=== PATIENT | female | born 2000 | race Caucasian/White ===

== ENCOUNTER 2022-09-14 13:54 | Inpatient (IN) ==
--- NOTE | 2022-09-14 14:35 | Emergency Department Note ---
Impression & Plan Depression with suicidal ideation ED Provider Note NAME: TRACE LANDIN AGE: 21 SEX: F : 2000 ARRIVES VIA: Walk-In INFORMANT: Patient, ED PROVIDER(S): Alejandro Phipps MD CHIEF COMPLAINT: Depression, "I am trying not to cry." MEDICAL DECISION MAKING: Patient presented due to concern for mental wellness issues with associated depression suicidal ideation but without plan. The patient would like to seek inpatient treatment. Blood work was obtained and was being medically cleared seen and evaluated by the psych rehabilitation caseworker. Referrals were made. Patient was signed out to Dr. Gale pending reevaluation and disposition. Prior /Outside records reviewed: None Differential diagnosis: Mood disorder, infection, hypoglycemia, electrolyte abnormalities, cardiac sources, intracerebral event, toxicologic, trauma, neurologic, as well as other pathologies. HPI: Patient presents due to concern for depression and feeling as though she is going to cry. The patient has had thoughts of self-harm including overdosing on pills. The patient states that she is gotten progressively worse over the last several months and is unsure as to any sort of inciting event. The patient last tried to cut her wrist with box worker 6 months ago but did not do with intent to kill herself. The patient states that she has had thoughts of killing yourself recently. Patient denies any HI or AVH. 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 The patient currently lives with a boyfriend and states that her relationship is fine and feels safe at home. The patient does have access to the boyfriend's gun which is not in a locked safe. Patient denies any alcohol tobacco or drug use. The patient was started on Lexapro recently but does not feel as though it is improving her symptoms. Patient LMP was 1 month prior. This is normal for her. The patient states that she does not sleep at night but ends up sleeping during the day. The patient has varying appetite sometimes she is very hungry and other times she has no appetite. The patient does vape tobacco but denies any alcohol or drug use. The patient does receive her medications from primary care doctor and has tried to seek out care with a therapist or psychiatrist but has been unable to obtain an appointment. PAST MEDICAL HISTORY: See Below PAST SURGICAL HISTORY: See Below SOCIAL HISTORY: See Below HOME MEDICATIONS: See Below ALLERGIES: See Below VITALS: See Below PHYSICAL EXAMINATION: GENERAL: Depressed mood and tearful EYE EXAM: Normal conjunctiva. PERRL, no anisocoria and EOM's grossly intact w/o pain. NECK: Supple, no nuchal rigidity, no adenopathy, non-tender. No signs of meningismus. FROM of the neck with good chin to chest and neck extension. No stridor. LUNGS: Clear to auscultation. Normal chest wall mechanics. HEART: NSR, no MRG. ABDOMEN: Abdomen soft, non-tender, normo-active bowel sounds, no masses, no rebound or guarding. BACK: No CVA TTP. SKIN: No rashes and no bruising. UPPER EXTREMITIES: Upper extremities are grossly normal. LOWER EXTREMITIES: Grossly normal, no edema. NEURO EXAM: A&O x3, cranial nerves II-XII grossly intact, normal speech, moves all 4 extremities. Psych: Tearful, depressed mood, positive SI, negative HI or AVH Past Med/Surg History Medical History MDD (major depressive disorder) Surgical History No pertinent past surgical history Social History Smoking Status: Current every day smoker Hx Alcohol Use: No Hx Substance Use: No Preferred Language: [place] Citizen Feels Safe at Home: Yes Gender Identity: Female Results & Data (ED) Vital Signs Vital Signs - 24 hr 09/14/22 13:57 Temperature 36.4 C L Temperature Source Temporal Artery Scan Pulse Rate 90 Pulse Rhythm Regular Respiratory Rate 16 Respiratory Effort / Characteristics Non-Labored Spontaneous Respiratory Depth Normal Blood Pressure 151/92 H Blood Pressure Mean 111 Pulse Oximetry 99 Oxygen Delivery Method Room Air Sepsis Recent Fever Within 48 Hours No Sepsis New/Unexplained Change in Mental Status No Sepsis Action Taken by Nursing No Action Required Laboratory Data 09/14/22 14:21 09/14/22 14:21 Lab Results 09/14/22 Range/Units 14:15 SARS-CoV-2, RNA, NAAT NEGATIVE (NEGATIVE) Discharge Plan Visit Data Chief Complaint: Mental Health Evaluation Stated Complaint: MENTAL HEALTH EVAL ED Provider: Alejandro Phipps Discharge Problem: Depression with suicidal ideation Patient Disposition: Still a Patient Forms Stand Alone Forms: [facility], Suicide Prevention Resources Referrals Referrals: PCP,NO [Physician] -
[2022-09-14 15:25] LABS: Basophils # (auto) 0.04 K/uL (0-0.2); Basophils % (auto) 0.6 %; Eosinophils # (auto) 0.15 K/uL (0-0.50); Eosinophils % (auto) 2.3 %; Hematocrit (blood only) 40.7 % (37.0-47.0); Immature Granulocytes # (auto) 0.01 K/uL (0.01-0.20); Immature Granulocytes % (auto) 0.2 %; Lymphocytes # (auto) 2.73 K/uL (1.2-3.4); Mean Corpuscular Hemoglobin 26.5 pg (25.0-34.0); Mean Corpuscular Hgb Conc 31.9 g/dL (32.0-36.0); Mean Corpuscular Volume 83.1 fL (80.0-100.0); Mean Platelet Volume 8.5 fL (9.4-12.4); Monocytes # (auto) 0.47 K/uL (0.11-0.59); Monocytes % (auto) 7.2 %; Neutrophils % (auto) 47.7 %; Platelet Count 367 K/uL (130-400); RDW Coefficient of Variation 14.4 % (11.5-14.5); RDW Standard Deviation 43.7 fL (36.4-46.3)
[2022-09-14 15:49] LABS: Appearance Urine Clear (Clear); Bilirubin Urine Negative (Negative); Blood Urine Negative (Negative); Color Urine Yellow; Glucose Urine UA Negative (Negative); Ketones Urine Negative (Negative); Leukocyte Esterase Urine Negative (Negative); Nitrite Urine Negative (Negative); Protein Urine Negative (Negative); Specific Gravity Urine 1.012 (1.000-1.030); Urobilinogen Urine Negative (Negative); pH Urine 7.5 (4.5-7.5)
[2022-09-14 15:49] LABS: Acetaminophen < 3 ug/ml (10-30); Salicylate < 3.0 mg/dl (3.0-30)
[2022-09-14 16:17] LABS: Pregnancy Test, Urine Negative (Negative)
[2022-09-14 16:18] LABS: Albumin Globulin Ratio 1.4 (0.9-2); BUN Creatinine Ratio 18.2 (10-20); Bilirubin,Total 0.4 mg/dl (0.2-1.0); Calcium 10.1 mg/dl (8.5-10.1); Creatinine Clr Calc Pharmacy 137.2 ml/min; Est GFR (African American) 147.4 ml/min; Est GFR (Non-African American) 127.2 ml/min; Globulin 3.5 gm/dl (2.5-4.0); Potassium 3.9 mmol/L (3.5-5.1); Total Protein 8.5 gm/dl (6.0-8.3)
[2022-09-14 17:06] LABS: Amphetamines+Metham, Urine Neg (Neg); Barbiturates, Urine Neg (Neg); Benzodiazepine, Urine Neg (Neg); Cocaine, Urine Neg (Neg); MDMA (Ecstacy), Urine Neg (Neg); Methadone, Urine Neg (Neg); Opiate, Urine Neg (Neg); Phencyclidine, Urine Neg (Neg)
--- NOTE | 2022-09-14 17:44 | Emergency Department Note ---
ED Visit Note 1500: Signout from Dr. Phipps. 21-year-old female with suicidal ideation. Awaiting labs. 1540: Patient medically cleared. Awaiting psychiatric evaluation and possible placement. Patient placed in observation at this time. 191: Patient excepted to 3 S. The patient was originally placed in observation on September 14, 2022 to establish medical clearance and determine the patients ultimate disposition. The patient was also evaluated by the ED psychiatric immigration case manager. It was eventually determined that the patient did require inpatient psychiatric care. Patient admitted to 3 S. Total time spent on observation discharge for the final evaluation of the patient, discussion of the Observation stay, reviewing instructions for continuing care, and required follow up plan: 3 hours and 35 minutes .
[2022-09-14] MEDS ORDERED: SODIUM CHLORIDE 0.65% NA SOLN 45 ML (OCEAN) PRN (19:03)
[2022-09-14] MEDS ORDERED: MAGNESIUM HYDROXIDE SUSP 30 ML UDC PO PRN (19:03)
[2022-09-14] MEDS ORDERED: BISMUTH SUBSALICYLATE LIQD 236 ML PO PRN (19:03)
[2022-09-14] MEDS ORDERED: hydrOXYzine HCl 25 MG TAB PO PRN ×2 (19:03)
[2022-09-14] MEDS ORDERED: ALUMINUM/MAGNESIUM SUSP 30 ML UDC PO PRN (19:03)
[2022-09-14] MEDS ORDERED: ACETAMINOPHEN 325 MG TAB PO PRN (19:03)
--- NOTE | 2022-09-15 08:16 | History & Physical ---
Date of Service September 15, 2022 Impression / Recommendations Impression Trace is a 21 year old with a history of depression and anxiety who was admitted for worsening mood symptoms with SI with plans of overdosing. Diagnostically consistent with major depressive disorder with anxious distress and generalized anxiety disorder with panic attacks. She is deemed in need of psychiatric hospitalization for diagnostic clarification, safety and stabilization, medication management and development of further coping skills. Discussed medication treatment options in detail. Discussed risks, benefits and alternatives. Patient would like to start and consented to cross-taper to venlafaxine ER for depression and anxiety and mirtazapine for insomnia, depression augmentation. Reviewed side effects including but not limited to: GI, BAILON, elevated BP, diaphoresis, sexual side effects, and counseled on black box warning of potential for emergence of or increased SI and need to let staff know should this occur or should they feel unsafe. Also discussed importance of seeking emergency care following discharge if this side effect occurs in the future. As well as side effects including but not limited to: sedation, increased appetite with mirtazapine. (1) Depression with suicidal ideation: (2) Recurrent severe major depressive disorder with anxiety: (3) Generalized anxiety disorder with panic attacks: Plan 09/15/22: The patient was admitted to the [facility]) on q15 min checks (behavioral with suicide precautions) for safety. The patient will participate in group, recreational, and milieu therapies and will be offered additional individual and family sessions as clinically appropriate. -Start cross-taper from escitalopram (decrease to 10mg) to venlafaxine ER (37.5mg) -Start mirtazapine 7.5mg HS -Reviewed that her insurance is out of network and may or may not agree to single case agreement, discussed options including ongoing treatment here versus looking into possibility to transfer to inpt psych unit within her insurance network; she would like to pursue transfer, will start referral process Inventory Assets Strengths: supportive relationships, willing to get treatment, motivated for therapy Needs: safety and stabilization, medication adjustment, additional coping skills, increased outpatient services Suicide Risk Level Suicide Risk Level: High-Moderate (q15 min suicide checks) (severe depression with SI with plan prior to admission but feels safe in the hospital, able to safety contract and agrees to let nursing/staff know should they develop plan, intent or feel unable to remain safe.) Suicide Risk Level Comments: Risk Factors Assessment Male: No : Yes Do You Have Access To A Gun?: No (boyfriend has secured so she has no access to this) Health Problems: No Mental Health Diagnoses: Yes Substance Use Disorders: No Previous Attempt: Yes Family History of Suicide: No Previous Psychiatric Hospitalization: No Protective Factors Assessment Employed: Yes Stable Relationships: Yes Supportive Family: Yes Psychiatric History Identifying Data TRACE LANDIN is a 21-year-old F who currently lives in [place] with her boyfriend, has a history of depression and anxiety, and was admitted on 09/14/22 19:03 on a 201 voluntary commitment for worsening depression and SI. Chief Complaint "I was not able to control my bad thoughts anymore". History of Present Illness Trace presents for psychiatric admission for worsening depression and SI with plan of overdosing in context of psychosocial stressors including not being in school and not liking her job. Progressively worsening depression and anxiety over the last few months since fall. She endorses depressive symptoms including anhedonia, tearfulness, self-guilt, hopelessness, helplessness, decreased energy, decreased motivation, decreased concentration, decreased sleep due to significant sleep onset insomnia but once asleep stays asleep (varies 3- 13 hours), variable appetite with chronic nausea. SI started a week ago and has been occurring every night for a few hours and intensified to the point of plan of overdosing the night before coming to the ED. She endorses anxiety symptoms including excessive worry, restlessness, fatigue, irritability, insomnia, decreased concentration, and panic attacks daily lasting few minutes to a few hours. She is currently prescribed psychiatric medications of escitalopram 20mg (increased in early September). She feels like this has been making her more depressed. Psychiatric ROS notable for no current nor history of symptoms of orquidea, psychosis, PTSD nor OCD. History of self-harm via cutting, last occurred 6 months ago. In the past has restricted eating, but never purged. Past Psychiatric History Current Psychiatric Diagnosis: Depression, anxiety Outpatient Services: none Previous Psych Admissions: n/a Do You Have Access To A Gun?: No (boyfriend has secured so she has no access to this) History of Previous Suicide Attempt: Yes (8th grade) Describe Attempts in the Past: via overdose of melatonin Past Medication Trials: fluoxetine throughout high school and then stopped and restarted fall 2021 but it wasn't helping; celexa-caused her to feel "like I was insane"; sertraline "made everything worse"; Buspar early med trial in 7th grade; no hx SNRI; no hx trazodone/mirtazapine Past Head Trauma/Neuro History History of Concussion/Seizure: No Allergies Allergy/AdvReac Type Severity Reaction Status Date / Time No Known Allergies Allergy Verified 09/15/22 11:09 Home Medications Medication Instructions Recorded Confirmed Type escitalopram oxalate 20 mg tablet 20 mg PO DAILY 09/14/22 09/14/22 History pantoprazole 40 mg tablet,delayed 40 mg PO Q OTHER DAY 09/14/22 09/14/22 History release Family History Family History of: Anxiety (paternal side) Alcohol History Hx of Alcohol Use Over the Past 12 Months: No AUDIT Total Score: 0 Smoking Use Have You Smoked or Used Tobacco Products in the Last 30 Days: Yes tobacco type: e-cigarettes Smoking Status: Current every day smoker (vapes 5mg over a week) Substance History Hx of Prescription Med Misuse Over the Past 12 Months: No Hx of Over the Counter Med Misuse Over the Past 12 Months: No Hx of Inhalent Misuse Over the Past 12 Months: No Hx of Organic Substance Use Over the Past 12 Months: No Hx of Illegal Substances/Street Drug Use Over Past 12 Months: No Problems as a Result of Past Substance Use: None Identified Personal History Living Arrangements: Apartment Highest Grade Completed: Some College (taking the semester off, sonography) 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 Required: No Beliefs That Will Affect Care: None Feels Safe at Home: Yes Gender Identity: Female Assistive Devices: Glasses Review of Systems Review of Systems: All systems reviewed & are unremarkable except as noted in HPI & below Physical Exam Psychiatric: Orientation: alert and oriented x 3 Apperance: appropriately dressed and appropriately groomed Eye Contact: good eye contact Motor Be havior: no abnormal motor movements Speech: normal rate/rhythm/volume of speech Affect: + depressed affect and + anxious affect Mood: + depressed mood (she describes as "I feel numb") and + anxious mood Thought Process: goal directed thought process Thought Content: reality based without delusions Suicidal Thoughts: denies suicidal plan (none for here in the hospital) and denies suicidal intent; + reports suicidal thoughts (intermittent thoughts ) Homicidal Thoughts: denies homicidal thoughts Hallucinations: no auditory hallucinations and no visual hallucinations Cognition: recent memory grossly intact, remote memory grossly intact, attention grossly intact and language grossly intact Estimated Intelligence: consistent with education level Insight: + fair insight Judgment: + fair judgement Vital Signs (Past 24 Hours): Last Vital Signs Temp 36.8 C 09/15/22 06:35 Pulse 103 H 09/15/22 06:35 Resp 18 09/15/22 06:35 BP 114/76 09/15/22 06:37 Pulse Ox 98 09/14/22 19:24 O2 Del Method 09/14/22 19:47 Exam Statement: A physical exam was performed in the ED by Dr. Phipps for the purposes of medical clearance. I accept that physical as correct and adequate for the purposes of the inpatient physical exam. Results & Data ([facility]) Laboratory Results Laboratory Results - last 24 hr 09/14/22 09/14/22 09/14/22 14:15 14:21 14:21 WBC 6.50 RBC 4.90 Hgb 13.0 Hct 40.7 MCV 83.1 MCH 26.5 MCHC 31.9 L RDW Std Deviation 43.7 RDW Coeff of Rosi 14.4 Plt Count 367 MPV 8.5 L Immature Gran % (Auto) 0.2 Neut % (Auto) 47.7 Lymph % (Auto) 42.0 Alfalfa % (Auto) 7.2 Eos % (Auto) 2.3 Baso % (Auto) 0.6 Neut # (Auto) 3.10 Lymph # (Auto) 2.73 Alfalfa # (Auto) 0.47 Eos # (Auto) 0.15 Baso # (Auto) 0.04 Immature Gran # (Auto) 0.01 Sodium 139 Potassium 3.9 Chloride 101 Carbon Dioxide 30 Anion Gap 8 BUN 12 Creatinine 0.66 Est Cr Clr Drug Dosing 137.2 Est GFR ( Amer) 147.4 Est GFR (Non-Af Amer) 127.2 BUN/Creatinine Ratio 18.2 Glucose 77 Calcium 10.1 Total Bilirubin 0.4 AST 21 ALT 29 Alkaline Phosphatase 86 Total Protein 8.5 H Albumin 5.0 Globulin 3.5 Albumin/Globulin Ratio 1.4 TSH Urine Color Urine Appearance Urine pH Ur Specific [place] Urine Protein Urine Glucose (UA) Urine Ketones Urine Blood Urine Nitrite Urine Bilirubin Urine Urobilinogen Ur Leukocyte Esterase Urine Test Salicylates Urine Opiates Screen Ur Methadone, Qual Acetaminophen Urine Barbiturates Ur Phencyclidine (PCP) U Amphetamin/Meth Scrn MDMA (Ecstasy) Screen U Benzodiazepines Scrn Ur Cocaine Metabolite U Marijuana (THC) Screen Ethyl Alcohol mg/dL SARS-CoV-2, RNA, NAAT NEGATIVE 09/14/22 09/14/22 09/14/22 14:21 14:21 14:21 WBC RBC Hgb Hct MCV MCH MCHC RDW Std Deviation RDW Coeff of Rosi Plt Count MPV Immature Gran % (Auto) Neut % (Auto) Lymph % (Auto) Alfalfa % (Auto) Eos % (Auto) Baso % (Auto) Neut # (Auto) Lymph # (Auto) Alfalfa # (Auto) Eos # (Auto) Baso # (Auto) Immature Gran # (Auto) Sodium Potassium Chloride Carbon Dioxide Anion Gap BUN Creatinine Est Cr Clr Drug Dosing Est GFR ( Amer) Est GFR (Non-Af Amer) BUN/Creatinine Ratio Glucose Calcium Total Bilirubin AST ALT Alkaline Phosphatase Total Protein Albumin Globulin Albumin/Globulin Ratio TSH 3.548 Urine Color Urine Appearance Urine pH Ur Specific [place] Urine Protein Urine Glucose (UA) Urine Ketones Urine Blood Urine Nitrite Urine Bilirubin Urine Urobilinogen Ur Leukocyte Esterase Urine Test Salicylates < 3.0 L Urine Opiates Screen Ur Methadone, Qual Acetaminophen < 3 L Urine Barbiturates Ur Phencyclidine (PCP) U Amphetamin/Meth Scrn MDMA (Ecstasy) Screen U Benzodiazepines Scrn Ur Cocaine Metabolite U Marijuana (THC) Screen Ethyl Alcohol mg/dL < 10.0 SARS-CoV-2, RNA, NAAT 09/14/22 09/14/22 09/14/22 15:34 15:34 15:34 WBC RBC Hgb Hct MCV MCH MCHC RDW Std Deviation RDW Coeff of Rosi Plt Count MPV Immature Gran % (Auto) Neut % (Auto) Lymph % (Auto) Alfalfa % (Auto) Eos % (Auto) Baso % (Auto) Neut # (Auto) Lymph # (Auto) Alfalfa # (Auto) Eos # (Auto) Baso # (Auto) Immature Gran # (Auto) Sodium Potassium Chloride Carbon Dioxide Anion Gap BUN Creatinine Est Cr Clr Drug Dosing Est GFR ( Amer) Est GFR (Non-Af Amer) BUN/Creatinine Ratio Glucose Calcium Total Bilirubin AST ALT Alkaline Phosphatase Total Protein Albumin Globulin Albumin/Globulin Ratio TSH Urine Color Yellow Urine Appearance Clear Urine pH 7.5 Ur Specific [place] 1.012 Urine Protein Negative Urine Glucose (UA) Negative Urine Ketones Negative Urine Blood Negative Urine Nitrite Negative Urine Bilirubin Negative Urine Urobilinogen Negative Ur Leukocyte Esterase Negative Urine Test Negative Salicylates Urine Opiates Screen Neg Ur Methadone, Qual Neg Acetaminophen Urine Barbiturates Neg Ur Phencyclidine (PCP) Neg U Amphetamin/Meth Scrn Neg MDMA (Ecstasy) Screen Neg U Benzodiazepines Scrn Neg Ur Cocaine Metabolite Neg U Marijuana (THC) Screen Neg Ethyl Alcohol mg/dL SARS-CoV-2, RNA, NAAT Current Inpatient Medications Current Inpatient Medications: Current Inpatient Medications Acetaminophen (Acetaminophen 325 Mg Tab) 650 mg PO Q4H PRN PRN Reason: Headache or Minor Fever Stop: 10/14/22 19:02 Al Hydrox/Mg Hydrox/Simethicone (Aluminum/Magnesium Susp 30 Ml Udc) 30 ml PO Q4H PRN PRN Reason: GI Upset Stop: 10/14/22 19:02 Bismuth Subsalicylate (Bismuth Subsalicylate Liqd 236 Ml) 15 ml PO PRN PRN PRN Reason: Loose Stool Stop: 10/14/22 19:02 Hydroxyzine HCl (Hydroxyzine Hcl 25 Mg Tab) 50 mg PO HSZ PRN PRN Reason: Insomnia Stop: 10/14/22 19:02 Last Admin: 09/14/22 21:11 Dose: 50 mg Hydroxyzine HCl (Hydroxyzine Hcl 25 Mg Tab) 25 mg PO Q4H PRN PRN Reason: Anxiety Stop: 10/14/22 19:02 Magnesium Hydroxide (Magnesium Hydroxide Susp 30 Ml Udc) 30 ml PO DAILY PRN PRN Reason: Constipation Stop: 10/14/22 19:02 Sodium Chloride (Sodium Chloride 0.65% Na Soln 45 Ml ([place])) 1 - 2 sprays NA PRN PRN PRN Reason: Nasal Dryness/Congestion Stop: 10/14/22 19:02
[2022-09-15] MEDS ORDERED: NICOTINE POLACRILEX 2 MG GUM MT PRN (11:19)
[2022-09-15] MEDS ORDERED: NICOTINE 14 MG/24 HR PATCH TD SCH (11:30)
[2022-09-15] MEDS ORDERED: ESCITALOPRAM OXALATE 10 MG TAB PO SCH (11:30)
[2022-09-15] MEDS ORDERED: VENLAFAXINE HCL XR 37.5 MG CAPXR PO SCH (11:30)
--- NOTE | 2022-09-15 15:39 | Discharge Summary ---
Date of Service September 15, 2022 History of Present Illness Amy presents for psychiatric admission for worsening depression and SI with plan of overdosing in context of psychosocial stressors including not being in school and not liking her job. Progressively worsening depression and anxiety over the last few months since fall. She endorses depressive symptoms including anhedonia, tearfulness, self-guilt, hopelessness, helplessness, decreased energy, decreased motivation, decreased concentration, decreased sleep due to significant sleep onset insomnia but once asleep stays asleep (varies 3- 13 hours), variable appetite with chronic nausea. SI started a week ago and has been occurring every night for a few hours and intensified to the point of plan of overdosing the night before coming to the ED. She endorses anxiety symptoms including excessive worry, restlessness, fatigue, irritability, insomnia, decreased concentration, and panic attacks daily lasting few minutes to a few hours. She is currently prescribed psychiatric medications of escitalopram 20mg (increased in early September). She feels like this has been making her more depressed. Psychiatric ROS notable for no current nor history of symptoms of orquidea, psychosis, PTSD nor OCD. History of self-harm via cutting, last occurred 6 months ago. In the past has restricted eating, but never purged. Physical Exam Vital Signs (Past 24 Hours) Last Vital Signs Temp 36.8 C 09/15/22 06:35 Pulse 103 H 09/15/22 06:35 Resp 18 09/15/22 06:35 BP 114/76 09/15/22 06:37 Pulse Ox 98 09/14/22 19:24 O2 Del Method 09/14/22 19:47 See admission H&P and DOD summary. Principal Diagnosis Major Depressive Disorder with anxious distress Psychiatric Data Amy was admitted to [facility] on 09/15/2022 with details per admission H&P. Her insurance was found to be out of network and she preferred to transfer to another facility that would be in network. She was accepted at [facility] for ongoing inpatient psychiatric care. During her brief stay she was started on a cross-taper from escitalopram to venlafaxine ER with plan to start mirtazapine tonight for depression augmentation and help with sleep. She was engaged with the social/therapeutic milieu of the unit, safety was maintained and the patient was cooperative with care. Day of Discharge Assessment Today the patient voices readiness for discharge via secure transport to [place] [facility]. Orientation: alert and oriented x 3 Apperance: appropriately dressed and appropriately groomed Eye Contact: good eye contact Motor Behavior: no abnormal motor movements Speech: normal rate/rhythm/volume of speech Affect: + depressed affect and + anxious affect Mood: + depressed mood (she describes as "I feel numb") and + anxious mood Thought Process: goal directed thought process Thought Content: reality based without delusions Suicidal Thoughts: denies suicidal plan (none for here in the hospital) and denies suicidal intent; + reports suicidal thoughts (intermittent thoughts ) Homicidal Thoughts: denies homicidal thoughts Hallucinations: no auditory hallucinations and no visual hallucinations Cognition: recent memory grossly intact, remote memory grossly intact, attention grossly intact and language grossly intact Estimated Intelligence: consistent with education level Insight: + fair insight Judgment: + fair judgement Transition of Care Transition Of Care Record: was reviewed with the patient Advance Directives Advance Directives Information Provided: Yes Advance Directives: No Mental Health Advance Directive: No Advance Directives on File: No Living Will: No Power of Program Aide Group Work: No Advance Directives Reason:: Declines as Mental Health Visit. Suicide Risk Level Suicide Risk Level Comments: High-Moderate: severe depression with SI with plan prior to admission but feels safe in the hospital, able to safety contract and agrees to let nursing/staff know should they develop plan, intent or feel unable to remain safe. Remains in need of inpatient care. [place] to be safe for transport as she denies current SI. Risk Factors Assessment Male: No : Yes Do You Have Access To A Gun?: No (boyfriend has secured so she has no access to this) Health Problems: No Mental Health Diagnoses: Yes Substance Use Disorders: No Previous Attempt: Yes Family History of Suicide: No Previous Psychiatric Hospitalization: No Hopelessness: Yes Protective Factors Assessment Employed: Yes Stable Relationships: Yes Supportive Family: Yes Discharge Data Lab Results 09/14/22 09/14/22 09/14/22 14:15 14:21 14:21 WBC 6.50 RBC 4.90 Hgb 13.0 Hct 40.7 MCV 83.1 MCH 26.5 MCHC 31.9 L RDW Std Deviation 43.7 RDW Coeff of Rosi 14.4 Plt Count 367 MPV 8.5 L Immature Gran % (Auto) 0.2 Neut % (Auto) 47.7 Lymph % (Auto) 42.0 [place] % (Auto) 7.2 Eos % (Auto) 2.3 Baso % (Auto) 0.6 Neut # (Auto) 3.10 Lymph # (Auto) 2.73 [place] # (Auto) 0.47 Eos # (Auto) 0.15 Baso # (Auto) 0.04 Immature Gran # (Auto) 0.01 Sodium 139 Potassium 3.9 Chloride 101 Carbon Dioxide 30 Anion Gap 8 BUN 12 Creatinine 0.66 Est Cr Clr Drug Dosing 137.2 Est GFR ( Amer) 147.4 Est GFR (Non-Af Amer) 127.2 BUN/Creatinine Ratio 18.2 Glucose 77 Calcium 10.1 Total Bilirubin 0.4 AST 21 ALT 29 Alkaline Phosphatase 86 Total Protein 8.5 H Albumin 5.0 Globulin 3.5 Albumin/Globulin Ratio 1.4 TSH Urine Color Urine Appearance Urine pH Ur Specific [place] Urine Protein Urine Glucose (UA) Urine Ketones Urine Blood Urine Nitrite Urine Bilirubin Urine Urobilinogen Ur Leukocyte Esterase Urine Test Salicylates Urine Opiates Screen Ur Methadone, Qual Acetaminophen Urine Barbiturates Ur Phencyclidine (PCP) U Amphetamin/Meth Scrn MDMA (Ecstasy) Screen U Benzodiazepines Scrn Ur Cocaine Metabolite U Marijuana (THC) Screen Ethyl Alcohol mg/dL SARS-CoV-2, RNA, NAAT NEGATIVE 09/14/22 09/14/22 09/14/22 14:21 14:21 14:21 WBC RBC Hgb Hct MCV MCH MCHC RDW Std Deviation RDW Coeff of Rosi Plt Count MPV Immature Gran % (Auto) Neut % (Auto) Lymph % (Auto) [place] % (Auto) Eos % (Auto) Baso % (Auto) Neut # (Auto) Lymph # (Auto) [place] # (Auto) Eos # (Auto) Baso # (Auto) Immature Gran # (Auto) Sodium Potassium Chloride Carbon Dioxide Anion Gap BUN Creatinine Est Cr Clr Drug Dosing Est GFR ( Amer) Est GFR (Non-Af Amer) BUN/Creatinine Ratio Glucose Calcium Total Bilirubin AST ALT Alkaline Phosphatase Total Protein Albumin Globulin Albumin/Globulin Ratio TSH 3.548 Urine Color Urine Appearance Urine pH Ur Specific [place] Urine Protein Urine Glucose (UA) Urine Ketones Urine Blood Urine Nitrite Urine Bilirubin Urine Urobilinogen Ur Leukocyte Esterase Urine Test Salicylates < 3.0 L Urine Opiates Screen Ur Methadone, Qual Acetaminophen < 3 L Urine Barbiturates Ur Phencyclidine (PCP) U Amphetamin/Meth Scrn MDMA (Ecstasy) Screen U Benzodiazepines Scrn Ur Cocaine Metabolite U Marijuana (THC) Screen Ethyl Alcohol mg/dL < 10.0 SARS-CoV-2, RNA, NAAT 09/14/22 09/14/22 09/14/22 15:34 15:34 15:34 WBC RBC Hgb Hct MCV MCH MCHC RDW Std Deviation RDW Coeff of Rosi Plt Count MPV Immature Gran % (Auto) Neut % (Auto) Lymph % (Auto) [place] % (Auto) Eos % (Auto) Baso % (Auto) Neut # (Auto) Lymph # (Auto) [place] # (Auto) Eos # (Auto) Baso # (Auto) Immature Gran # (Auto) Sodium Potassium Chloride Carbon Dioxide Anion Gap BUN Creatinine Est Cr Clr Drug Dosing Est GFR ( Amer) Est GFR (Non-Af Amer) BUN/Creatinine Ratio Glucose Calcium Total Bilirubin AST ALT Alkaline Phosphatase Total Protein Albumin Globulin Albumin/Globulin Ratio TSH Urine Color Yellow Urine Appearance Clear Urine pH 7.5 Ur Specific [place] 1.012 Urine Protein Negative Urine Glucose (UA) Negative Urine Ketones Negative Urine Blood Negative Urine Nitrite Negative Urine Bilirubin Negative Urine Urobilinogen Negative Ur Leukocyte Esterase Negative Urine Test Negative Salicylates Urine Opiates Screen Neg Ur Methadone, Qual Neg Acetaminophen Urine Barbiturates Neg Ur Phencyclidine (PCP) Neg U Amphetamin/Meth Scrn Neg MDMA (Ecstasy) Screen Neg U Benzodiazepines Scrn Neg Ur Cocaine Metabolite Neg U Marijuana (THC) Screen Neg Ethyl Alcohol mg/dL SARS-CoV-2, RNA, NAAT 09/15/22 13:15 WBC RBC Hgb Hct MCV MCH MCHC RDW Std Deviation RDW Coeff of Rosi Plt Count MPV Immature Gran % (Auto) Neut % (Auto) Lymph % (Auto) [place] % (Auto) Eos % (Auto) Baso % (Auto) Neut # (Auto) Lymph # (Auto) [place] # (Auto) Eos # (Auto) Baso # (Auto) Immature Gran # (Auto) Sodium Potassium Chloride Carbon Dioxide Anion Gap BUN Creatinine Est Cr Clr Drug Dosing Est GFR ( Amer) Est GFR (Non-Af Amer) BUN/Creatinine Ratio Glucose Calcium Total Bilirubin AST ALT Alkaline Phosphatase Total Protein Albumin Globulin Albumin/Globulin Ratio TSH Urine Color Urine Appearance Urine pH Ur Specific [place] Urine Protein Urine Glucose (UA) Urine Ketones Urine Blood Urine Nitrite Urine Bilirubin Urine Urobilinogen Ur Leukocyte Esterase Urine Test Salicylates Urine Opiates Screen Ur Methadone, Qual Acetaminophen Urine Barbiturates Ur Phencyclidine (PCP) U Amphetamin/Meth Scrn MDMA (Ecstasy) Screen U Benzodiazepines Scrn Ur Cocaine Metabolite U Marijuana (THC) Screen Ethyl Alcohol mg/dL SARS-CoV-2, RNA, NAAT NEGATIVE Hospital Course (1) Depression with suicidal ideation: (2) Recurrent severe major depressive disorder with anxiety: (3) Generalized anxiety disorder with panic attacks: Plan 09/15/22: The patient was admitted to the [facility] ([facility] inpatient mental health unit) on q15 min checks (behavioral with suicide precautions) for safety. The patient will participate in group, recreational, and milieu therapies and will be offered additional individual and family sessions as clinically appropriate. -Start cross-taper from escitalopram (decrease to 10mg) to venlafaxine ER (37.5mg) -Start mirtazapine 7.5mg HS -Reviewed that her insurance is out of network and may or may not agree to single case agreement, discussed options including ongoing treatment here versus looking into possibility to transfer to in psych unit within her insurance network; she would like to pursue transfer, will start referral process Mental Health & Subst Abuse Tx Therapist Name of Therapist: None Post Discharge Appointments Primary Care Physician Name Of Family Doctor/PCP: Yani Salinas Discharge Plan Discharge Items Patient Disposition: Home - Self-Care Reason For Visit: SUICIDAL IDEATION Discharge Diagnosis: Major Depressive Disorder Activity: Resume your previous activity Non-emergency contact: Primary Care Provider Call non-emergency contact if: you have any medication questions and your symptoms worsen Follow-up/Referrals: JAY LENTZ [Other] Diet: Regular Addtl Attending Provider Instructions: Patient is being transferred to [facility] for ongoing inpatient psychiatric care as our facility was found to be out of network for her insurance and they would not natalie a single case agreement. She remains at elevated risk of self-harm due to major depression and intermittent SI and will be transferred via secure transport. Disposition says home-self care so that her discharge paperwork is able to be printed but she is a discharge without going home rather will be going right to [facility] for inpatient psychiatry admission as she continues to meet criteria for inpatient level of care. Pending Studies at Discharge: No Stand-Alone Forms: [email or web address], Smoking Cessation Medications and DC Order Prescriptions: New nicotine 7 mg/24 hr Patch 24 Hour 14 mg transdermal QAM Qty: 1 0RF nicotine (polacrilex) [Nicorette] 2 mg Gum 2 mg MT PRN PRN (Reason: nicotine cravings) Qty: 1 0RF escitalopram oxalate 10 mg Tablet 10 mg PO QAM Qty: 1 0RF mirtazapine 15 mg Tablet 7.5 mg PO HS Qty: 1 0RF venlafaxine 37.5 mg Capsule,Extended Release 24hr 37.5 mg PO QAM Qty: 1 0RF Continued pantoprazole 40 mg tablet,delayed release (DR/EC) 40 mg PO Q OTHER DAY Discontinued escitalopram oxalate 20 mg tablet 20 mg PO DAILY Discharge Orders: Discharge Order (Routine); Ordered 09/15/22 Ordered By: Venice Rush Admission Data Admit Date/Time: 09/14/22 19:03 Attending Provider: Venice Rush Admit Provider: Venice Rush Primary Care Provider: JAY LENTZ Coding Level of Care Code 18564 D/C day mgmt 30 min or < Diagnoses Depression with suicidal ideation F32.A; R45.851 Recurrent severe major depressive disorder with anxiety F33.2; F41.9 Generalized anxiety disorder with panic attacks F41.1; F41.0 Time Spent (min) 20
[2022-09-15] MEDS ORDERED: MIRTAZAPINE TAB 15 MG TAB PO SCH (22:00)
[2022-09-16] MEDS ORDERED: PANTOprazole 40 MG TAB PO SCH (08:00)
== END 2022-09-15 18:50 | disposition home or self-care (01) | DRG 881 ==
LOC: ED 13:54 → 3S 19:03